=== PATIENT | male | born 1985 | race Caucasian/White ===

== ENCOUNTER 2020-08-15 20:42 | Emergency (ER) | payer SELFPAY ==
[2020-08-15 20:43] VITALS: BP 141/89; PULSE 89; RESP 18; TEMP 36.8; O2SAT 99; BMI 34.4
--- NOTE | 2020-08-15 20:47 | XRR_ITS ---
PROCEDURE INFORMATION: Exam: XR Right Shoulder Exam date and time: 08/15/2020 8:47 PM Age: 34 years old Clinical indication: Pain; Shoulder; Right; Additional info: Fall, post reduction TECHNIQUE: Imaging protocol: XR Right shoulder. Views: 2 or more views. Total images: 2 COMPARISON: No relevant prior studies available. FINDINGS: Bones/joints: Subcoracoid anterior dislocation of the right shoulder without visible associated fracture. Soft tissues: Unremarkable. XR/XR shoulder RT min 2V* [id number] IMPRESSION: Subcoracoid anterior dislocation of the right shoulder.
[2020-08-15 20:58] VITALS: PULSE 81
[2020-08-15 21:19] VITALS: BP 159/104; PULSE 81; RESP 20; TEMP 36.8; O2SAT 100
--- NOTE | 2020-08-15 21:27 | XRR_ITS ---
PROCEDURE INFORMATION: Exam: XR Right Shoulder Exam date and time: 08/15/2020 9:27 PM Age: 34 years old Clinical indication: Screening exam; Post reduction TECHNIQUE: Imaging protocol: XR Right shoulder. Views: 2 or more views. COMPARISON: CR (CHEST, ) 08/15/2020 8:49 PM FINDINGS: Bones/joints: Successful reduction of right shoulder anterior dislocation. Hill-Sachs deformity noted. No clear evidence of bony Bankart. Soft tissues: Normal. XR/XR shoulder RT min 2V* [id number] IMPRESSION: 1. Successful reduction of right shoulder anterior dislocation. 2. Hill-Sachs deformity.
[2020-08-15 21:39] VITALS: BP 152/101; PULSE 89; RESP 16; O2SAT 99
[2020-08-15 21:45] VITALS: BP 150/94; PULSE 71; RESP 18; O2SAT 100
--- NOTE | 2020-08-15 21:47 | ED_ITS ---
HPI - Extremity Problem General: Chief complaint: Extremity Injury, Upper Stated complaint: SHOULDER DISLOCATION Time Seen by Provider: 08/15/20 20:43 Source: patient Mode of arrival: EMS Limitations: no limitations History of Present Illness: HPI Narrative: Patient is a 34-year-old male who has had multiple shoulder dislocations of his left shoulder. He has not had any dislocation of the right shoulder. Today he his dog was chasing a chicken and he was holding onto the dog when the dog pulled on him he felt his shoulder got dislocated on the right. He tried to reduce it at home but was unsuccessful and so called for an ambulance to bring him to the emergency department. In the ambulance he received a total of 100 mcg of fentanyl intravenously. MD Complaint: joint pain Onset (ago): hour(s) (1) Pain Consistency: constant Location: right and upper extremity Severity scale (1-10): 10 Quality: stabbing Radiation: none Relieving factors: nothing Exacerbating factors: range of motion Review of Systems General: Reports: 10 or more systems reviewed and unremarkable except in HPI and below Physical Exam Const: COMMON NORMALS: no acute distress, average body habitus, patient oriented x3, no limitations, healthy appearing, alert and well nourished HENMT: COMMON NORMALS: normocephalic, atraumatic and moist oral mucous membranes HEAD & SCALP: normocephalic and atraumatic Neck/C-Spine: COMMON NORMALS: no meningeal signs and no JVD Resp: COMMON NORMALS: normal respiratory effort, No retractions, No use of accessory muscles, clear to auscultation bilaterally and percussion normal AUSCULTATION: clear to auscultation bilaterally PERCUSSION: percussion normal Cardio: COMMON NORMALS: no JVD, regular rate, regular rhythm, S1 normal heart sound present, S2 normal heart sound present, No gallops present (Cardio), No clicks present (Cardio), No murmurs present (Cardio), No rub (Cardio) and Peripheral pulses 2+ throughout RATE: regular rate RHYTHM: regular rhythm HEART SOUNDS: S1 normal heart sound present and S2 normal heart sound present PERIPHERAL PULSES: Peripheral pulses 2+ throughout GI: COMMON NORMALS: Normal to inspection, nondistended, normoactive bowel sounds present, Soft to palpation, non-tender, No hepatosplenomegaly present, no masses and no bruits PALPATION: Yes Soft to palpation and Yes No hepatosplenomegaly present Extremity: COMMON NORMALS: normal to inspection, full ROM, capillary refill normal, no calf tenderness and no pedal edema RIGHT UPPER EXTREMITY: Yes shoulder joint Right shoulder: Yes Right shoulder joint inspection exam (no significant deformity), Yes palpation, Yes Right shoulder joint ROM exam (reduced ROM) and Yes Right shoulder joint neurovascular exam (intact) Neuro: COMMON NORMALS: patient oriented x3 SENSORIUM/ORIENTATION: Yes alert MENINGEAL SIGNS: Yes no meningeal signs Skin: COMMON NORMALS: no rashes or lesions noted, no wounds, turgor normal, no jaundice, no petechiae and no mottling GENERAL SKIN EXAM: no rashes or lesions noted and turgor normal Procedures Orthopedic Joint Reduction Joint #1: Time Out Performed: Yes Side: right Joint Reduction Location: shoulder Analgesia: procedural sedation Shoulder Technique Used (if applicable): external rotation Post-reduction neuro exam: intact Post-reduction vascular: intact Post Reduction X-Ray Obtained: Yes Post Reduction X-Ray Results: reduced Splint Applied: Yes Patient Tolerated Procedure: well and no complications Procedural Sedation Indication: fracture/dislocation reduction ASA Class: I Preparation: gambling monitor applied, pulse oximeter, capnometry used, supplemental O2 applied, reversal agents at bedside, suction/airway equipment at bedside and IV secured IV Etomidate dose (mg): 11 Patient Tolerated Procedure: well Complications: none Course Reevaluation(s): Reevaluation #1: Patient is alert and oriented and is safe to be discharged home. He is in a shoulder mobilizer. He is discharged home to follow-up with an orthopedic surgeon with his primary care provider. Time: 21:48 Vital Signs: Vital signs: Vital Signs Temperature 98.3 F 08/15/20 21:19 Pulse Rate 77 08/15/20 21:59 Respiratory Rate 16 08/15/20 21:59 Blood Pressure 131/97 08/15/20 21:59 Pulse Oximetry 100 08/15/20 21:59 MDM - Extremity (Nontraumatic) MDM Narrative: Medical decision making narrative: 34-year-old male who presented to the emergency department with a right shoulder dislocation. Dislocation was easily reduced after the patient was given procedural sedation. He was discharged home after shoulder was placed in a shoulder immobilizer. He will be referred to orthopedic surgery. Medical Records: Attestation: I reviewed the patient's medical records. Imaging Data^: Xray Ortho: Attestation: I personally reviewed and interpreted this imaging study as follows: My impression: Anterior shoulder dislocation. Post reduction x-ray of the right shoulder shows satisfactory reduction. Discharge Plan Discharge Patient Disposition: Home Clinical Impression: Anterior shoulder dislocation Qualifiers: Encounter type: initial encounter Laterality: right Qualified Code(s): S43.014A - Anterior dislocation of right humerus, initial encounter Condition: Stable Discharge Orders: Discharge ED (Routine); Ordered 08/15/20 Ordered By: Vladimir De Leon Referrals: Td Olmos MD [Primary Care Provider] - 1-3 days Discharge Diet: Usual diet Discharge Activity: Limit activity as instructed Patient Instructions: Shoulder Dislocation (ED) Activity Restrictions/Additional Instructions: Return for any new or worsening symptoms. Follow-up with your primary care provider within 1 week. Follow-up with the orthopedic surgeon, case management will call you to schedule an appointment with the orthopedic surgeon. Use the shoulder immobilizer until you are evaluated by the surgeon. Take Tylenol or ibuprofen as needed for pain. Coding Level of Care Code ED [employer] Worker for Arlette Sánchez
--- NOTE | 2020-08-15 21:49 | PC.NURSE ---
Pt is alert and oriented. Speaking in full sentences, Vital signs stable.
[2020-08-15 21:59] VITALS: BP 131/97; PULSE 77; RESP 16; O2SAT 100
[2020-08-15] MEDS: HYDROcodone-acetaminophen 10-325 mg Tablet 1 TAB PO (22:07)
--- NOTE | 2020-08-17 09:57 | DCPLANNER ---
bar manager had message to schedule a follow up appointment for patient with ortho for a right shoulder dislocation. bar manager called the ortho clinic, spoke with Beatrice, gave clinic patients information. bar manager was told that patients information would be printed and reviewed. Clinic will call patient with appointment information.
--- NOTE | 2020-09-02 09:24 | DCPLANNER ---
piping manager called the ortho clinic to confirm that a follow up appointment had been scheduled for patient. piping manager spoke with Yamile, was told that clinic has not been able to reach patient. Clinic did speak with patients , clinic is waiting for patient to call and schedule a follow up appointment.
== END 2020-08-15 22:11 | disposition home or self-care (01) ==
PROVIDERS: Emergency Provider Family Medicine; PCP Family Medicine
DX: S43.014A Anterior dislocation of right humerus, initial encounter (principal); X50.9XXA Other and unspecified overexertion or strenuous movements or postures, initial encounter
CPT/HCPCS: 23650; 29240; 73030; 99283; J3490

== ENCOUNTER → 2023-10-28 16:19 | Outpatient (BNVA) | payer BC, SELFPAY | PROVIDERS: PCP Family Medicine; Visit Provider Family Medicine | DX: M10.9 Gout, unspecified (principal) | CPT/HCPCS: 80053; 84550 ==

== ENCOUNTER → 2023-11-06 14:05 | Outpatient (BNVA) | payer BC, SELFPAY | DX: Z76.89 Persons encountering health services in other specified circumstances (principal); R03.0 Elevated blood-pressure reading, without diagnosis of hypertension | CPT/HCPCS: 80053; 80061; 83721; 84439; 84443; 84481; 85025 ==

== ENCOUNTER → 2024-06-27 15:48 | Outpatient (BNVA) | payer BC, SELFPAY | DX: I10 Essential (primary) hypertension (principal); M10.9 Gout, unspecified | CPT/HCPCS: 80053; 84550 ==

== ENCOUNTER → 2024-07-25 15:49 | Outpatient (BNVA) | payer BC, SELFPAY | DX: J45.909 Unspecified asthma, uncomplicated (principal) | CPT/HCPCS: 71046 ==

== ENCOUNTER 2024-09-04 13:56 | Outpatient (CLI) | payer BC, SELFPAY | END 2024-09-04 13:57 | disposition home or self-care (01) | LOC: SLEEP 13:57 | PROVIDERS: Visit Provider Internal Medicine Pulmonary Disease | DX: R40.0 Somnolence (principal); I10 Essential (primary) hypertension | CPT/HCPCS: G0399 ==